=== PATIENT | male | born 1950 | race Caucasian/White ===

== ENCOUNTER 2023-03-10 22:14 | Inpatient (IN) | payer OTHER ==
[~2023-03-10] VITALS: Ht 167.6 cm; Wt 99.8 kg
[2023-03-10] MEDS ORDERED: TACR1 PO (22:48)
[2023-03-10] MEDS ORDERED: TAMS.4ER PO (22:49)
[2023-03-10] MEDS ORDERED: Calcium Carbon500 MG PO (22:49)
[2023-03-10] MEDS ORDERED: Iron Chews15 MG PO (22:50)
[2023-03-10] MEDS ORDERED: MAGCHL64ER PO (22:50)
[2023-03-10] MEDS ORDERED: LEVSOD88 PO (22:50)
[2023-03-10] MEDS ORDERED: VITAMIN D310 MC5 PO (22:51)
[2023-03-10] MEDS ORDERED: VITAMIN B125000 MC1 PO (22:51)
[2023-03-10] MEDS ORDERED: METO25ER PO (22:52)
[2023-03-10 22:54] LABS: BASOPHILS ABSOLUTE AUTO 0.03 K/mm3 (0.00-0.23); BASOPHILS PERCENT AUTO 0 % (0-2); EOSINOPHILS ABSOLUTE AUTO 0.05 K/mm3 (0.00-0.68); EOSINOPHILS PERCENT AUTO 1 % (0-6); Hematocrit 35.7 % (37.0-53.0); Hemoglobin 12.2 g/dL (13.5-17.5); IMMATURE GRAN ABSOLUTE AUTO 0.04 K/mm3 (0.00-0.10); IMMATURE GRAN PERCENT AUTO 0 % (0-1); LYMPHOCYTES ABSOLUTE AUTO 2.58 K/mm3 (0.84-5.20); LYMPHOCYTES PERCENT AUTO 27 % (21-46); MONOCYTES PERCENT AUTO 5 % (4-13); Mean Corpuscular HGB 31.3 pg (26.0-34.0); Mean Corpuscular HGB Conc 34.2 g/dL (31.5-36.5); Mean Corpuscular Volume 92 fL (80-100); Mean Platelet Volume 9.8 fL (9.1-12.4); NEUTROPHILS ABSOLUTE AUTO 6.29 K/mm3 (1.96-9.15); NEUTROPHILS PERCENT AUTO 66 % (41-73); Platelet Count 147 K/mm3 (150-400); RDW Coefficient Variation 13.3 % (11.7-14.2); RDW Standard Deviation 44.6 fL (35.1-46.3); White Blood Cell Count 9.49 K/mm3 (4.00-11.30)
[2023-03-10 23:15] LABS: Albumin, Blood 3.5 g/dL (3.4-5.0); Albumin/Globulin Ratio 0.9 (0.8-1.8); Bilirubin, Total 0.7 mg/dL (0.1-1.0); Calcium, Blood 9.1 mg/dL (8.5-10.1); Creatinine, Blood 1.25 mg/dL (0.60-1.20); Globulin, Blood 3.7 g/dL (2.2-4.0); Potassium, Blood 4.3 mmol/L (3.5-5.5); Total Protein, Blood 7.2 g/dL (6.4-8.2)
[2023-03-11 00:21] LABS: Influenza A, PCR NEGATIVE (NEGATIVE); Influenza B, PCR NEGATIVE (NEGATIVE); Resp Syncytial Virus, PCR NEGATIVE (NEGATIVE); SARS-Cov-2 (COVID-19) PCR, MMC NEGATIVE (NEGATIVE)
[2023-03-11 01:52] VITALS: BP 110/61
[2023-03-11 05:48] LABS: BASOPHILS ABSOLUTE AUTO 0.03 K/mm3 (0.00-0.23); BASOPHILS PERCENT AUTO 0 % (0-2); EOSINOPHILS ABSOLUTE AUTO 0.07 K/mm3 (0.00-0.68); EOSINOPHILS PERCENT AUTO 1 % (0-6); Hematocrit 33.8 % (37.0-53.0); Hemoglobin 11.1 g/dL (13.5-17.5); IMMATURE GRAN ABSOLUTE AUTO 0.04 K/mm3 (0.00-0.10); IMMATURE GRAN PERCENT AUTO 1 % (0-1); LYMPHOCYTES ABSOLUTE AUTO 1.77 K/mm3 (0.84-5.20); LYMPHOCYTES PERCENT AUTO 22 % (21-46); MONOCYTES ABSOLUTE AUTO 0.48 K/mm3 (0.16-1.47); MONOCYTES PERCENT AUTO 6 % (4-13); Mean Corpuscular HGB 30.7 pg (26.0-34.0); Mean Corpuscular HGB Conc 32.8 g/dL (31.5-36.5); Mean Corpuscular Volume 93 fL (80-100); Mean Platelet Volume 9.9 fL (9.1-12.4); NEUTROPHILS ABSOLUTE AUTO 5.61 K/mm3 (1.96-9.15); NEUTROPHILS PERCENT AUTO 70 % (41-73); Platelet Count 125 K/mm3 (150-400); RDW Coefficient Variation 13.1 % (11.7-14.2); RDW Standard Deviation 44.9 fL (35.1-46.3); Red Blood Cell Count 3.62 M/mm3 (4.30-5.90)
[2023-03-11 05:58] LABS: Albumin/Globulin Ratio 0.9 (0.8-1.8); Bilirubin, Total 0.6 mg/dL (0.1-1.0); Bun/Creatinine Ratio 17.8 (12.0-20.0); Calcium, Blood 8.8 mg/dL (8.5-10.1); Creatinine, Blood 1.29 mg/dL (0.60-1.20); Globulin, Blood 3.4 g/dL (2.2-4.0); Potassium, Blood 4.4 mmol/L (3.5-5.5); Total Protein, Blood 6.4 g/dL (6.4-8.2)
[2023-03-11 07:36] VITALS: BP 120/73
--- NOTE | 2023-03-11 16:28 | NUR ---
PATIENT IS ALERT AND ORIENTED AND COOPERATIVE WITH CARE. ON 2L O2 VIA NC. RN TRIED TO TITRATE HIS OXYGEN FROM 2L TO RA BUT HIS O2 LEVEL ON RA WAS 87%. BRONCHODILATOR PROTOCOL ORDERED BY DR. ORELLANA TO GET RT INVOLVED IN THE PATIENT'S CARE HE NOW HAS SCHEDULED BREATHING TREATMENTS. PATIENT'S WAS AT THE BEDSIDE TODAY AND SHE WAS VERY KNOWLEDGEABLE ABOUT HIS HOME MEDICATIONS. PATIENT STATES HE IS FEELING BETTER THIS AFTERNOON COMPARED TO THIS MORNING. NEW IV PLACED IN HIS RAC. WILL CONTINUE TO MONITOR
[2023-03-11 16:46] VITALS: BP 93/72
[2023-03-11 19:30] VITALS: BP 138/66
[2023-03-12 03:37] VITALS: BP 114/63
--- NOTE | 2023-03-12 05:09 | NUR ---
PATIENT SELPT FOR SOME OF THE NIGHT, C/O HEADACHE AND TREATED PER JAN. TACHYCARDIA, BUT OTHERWISE VSS. HEART SOUNDS IRREGULAR, LUNGS ARE DIM, COARSE, WITH NON-PRODUCTIVE COUGH. ABD DISTENDED, PATIENT STATES IS NORMAL, REPORTS BM THE DAY PRIOR TO ARRIVAL ON THE . 2L NC CONTINUED THROUGH THE NIGHT. CALLS TO MAKE NEEDS KNOWN. STAND BY ASSIST WITH BRP. WILL CONT TO MONITOR.
[2023-03-12 07:31] VITALS: BP 100/61
[2023-03-12] MEDS ORDERED: FERROUS SULFAT325 M3 PO (11:43)
[2023-03-12] MEDS ORDERED: Promacta25 MG PO (11:46)
[2023-03-12] MEDS ORDERED: ACETADOTE200 MG/1 M PO (11:47)
[2023-03-12] MEDS ORDERED: ROFL500T PO (11:48)
[2023-03-12 16:37] VITALS: BP 143/78
--- NOTE | 2023-03-12 17:15 | NUR ---
SHIFT SUMMARY NO ACUTE CHANGES DURING SHIFT. PT ALERT AND ORIENTED, CALLS APPROPRIATELY. PT C/O HEADACHE, TYLENOL NOT EFFECTIVE. FIORCET STARTED AND ADMINISTERED X 2, PT STATES EFFECTIVE. PT REMAINS ON 2L, VERY SOB WITH EXERTION. WILL CONTINUE TO MONITOR. CALL LIGHT WITHIN REACH
[2023-03-12 21:38] VITALS: BP 125/72
[2023-03-13 05:04] VITALS: BP 108/65
[2023-03-13 06:01] LABS: BASOPHILS ABSOLUTE AUTO 0.02 K/mm3 (0.00-0.23); BASOPHILS PERCENT AUTO 0 % (0-2); EOSINOPHILS ABSOLUTE AUTO 0.09 K/mm3 (0.00-0.68); EOSINOPHILS PERCENT AUTO 2 % (0-6); Hematocrit 30.8 % (37.0-53.0); Hemoglobin 10.2 g/dL (13.5-17.5); IMMATURE GRAN ABSOLUTE AUTO 0.05 K/mm3 (0.00-0.10); IMMATURE GRAN PERCENT AUTO 1 % (0-1); LYMPHOCYTES ABSOLUTE AUTO 1.21 K/mm3 (0.84-5.20); LYMPHOCYTES PERCENT AUTO 27 % (21-46); MONOCYTES ABSOLUTE AUTO 0.28 K/mm3 (0.16-1.47); MONOCYTES PERCENT AUTO 6 % (4-13); Mean Corpuscular HGB 31.1 pg (26.0-34.0); Mean Corpuscular HGB Conc 33.1 g/dL (31.5-36.5); Mean Corpuscular Volume 94 fL (80-100); Mean Platelet Volume 10.1 fL (9.1-12.4); NEUTROPHILS ABSOLUTE AUTO 2.86 K/mm3 (1.96-9.15); NEUTROPHILS PERCENT AUTO 64 % (41-73); Platelet Count 109 K/mm3 (150-400); RDW Coefficient Variation 12.9 % (11.7-14.2); RDW Standard Deviation 44.6 fL (35.1-46.3); Red Blood Cell Count 3.28 M/mm3 (4.30-5.90); White Blood Cell Count 4.51 K/mm3 (4.00-11.30)
[2023-03-13 07:07] LABS: Bun/Creatinine Ratio 17.3 (12.0-20.0); Calcium, Blood 8.5 mg/dL (8.5-10.1); Creatinine, Blood 1.33 mg/dL (0.60-1.20); Potassium, Blood 3.8 mmol/L (3.5-5.5)
[2023-03-13 07:42] VITALS: BP 111/65
--- NOTE | 2023-03-13 17:46 | NUR ---
SHIFT SUMMARY: PT A&O X4. PT PLEASANT AND COOPERATIVE WITH CARE. PT RECEIVING IV AZITHROMYCIN AND ROCEPHIN. TOLERATING WELL. ABX AZITHRO SWITCHED TO PO STARTING TOMORROW. PLAN FOR PT TO D/C TOMORROW. PT USES INTERMITTENT 02 MAINTAINING SATS >95%. PT NEEDED 1 UNIT INSULIN COVERAGE FOR LUNCH AND DINNER. PT INDEPENDENT IN ROOM. PT HAD 9/10 PAIN IN HEAD THIS SHIFT. PT STATES HE HAS CHRONIC HEADACHES. MEDICATED PER EMAR. CURRENTLY NOT C/O PAIN. IV IN RAC LEAKING THIS EVENING. PULLED IV AND PLAN TO START NEW ONE. PT INDEPENDENT IN ROOM. CALL LIGHT IN REACH. WILL CONTINUE TO MONITOR.
[2023-03-13 20:00] VITALS: BP 123/73
--- NOTE | 2023-03-14 04:36 | NUR ---
PT RESTING IN BED, PT UP TO BR SEVERAL TIMES DURRING THE NIGHT. PT HAS ON HIS O2 AT THIS TIME, PT USES INTERMITANTLY. CALL LIGHT IN REACH.
[2023-03-14 05:36] VITALS: BP 132/85
[2023-03-14 07:33] VITALS: BP 127/82
[2023-03-14] MEDS ORDERED: CEFU500T30 PO (11:18)
[2023-03-14] MEDS ORDERED: ZEBUTAL 50-3251 EAC1 (11:18)
[2023-03-14] MEDS ORDERED: AZIT500 PO (11:18)
--- NOTE | 2023-03-14 16:17 | NUR ---
No acute changes to patient status, finished IV ABX, plan to discharge home with kiarra. Home O2 eval done, no oxygen needed. Pt discharged 1200
== END 2023-03-14 13:05 | disposition home or self-care (01) | DRG 189 ==
LOC: ER 22:14 → MEDS 22:15 → ER 22:15 → MEDS 22:15 → ENPENDDIS 03-14 09:14 → MEDS 03-14 13:05
PROVIDERS: Emergency Medicine; Internal Medicine; ADMIT Student in an Organized Health Care Education/Training Program
DX: J96.01 Acute respiratory failure with hypoxia (principal); J44.1 Chronic obstructive pulmonary disease with (acute) exacerbation; J44.0 Chronic obstructive pulmonary disease with (acute) lower respiratory infection; R65.10 Systemic inflammatory response syndrome (SIRS) of non-infectious origin without acute organ dysfunction; Z94.4 Liver transplant status; E11.65 Type 2 diabetes mellitus with hyperglycemia; J20.9 Acute bronchitis, unspecified; E11.42 Type 2 diabetes mellitus with diabetic polyneuropathy; E03.9 Hypothyroidism, unspecified; Z68.35 Body mass index [BMI] 35.0-35.9, adult; Z20.822 Contact with and (suspected) exposure to COVID-19; Z99.81 Dependence on supplemental oxygen; Z88.0 Allergy status to penicillin; Z88.5 Allergy status to narcotic agent; Z79.899 Other long term (current) drug therapy
CPT/HCPCS: 0241U; 36415; 71045; 80048; 80053; 82947; 83036; 83605; 83880; 84145; 85025; 87040; 87070; 87205; 87449; 93005; 93010; 94640; 94664; 94760; 96365; 96367; 96372; 96375; 99285-25; A9270; G0378; J0456; J0696; J1650; J2405; J7030; J7050; J7507

== ENCOUNTER 2024-10-06 13:57 | Inpatient (IN) | payer OTHER ==
[~2024-10-06] VITALS: Ht 167.6 cm; Wt 76.5 kg
[~2024-10-06 13:57] MED LIST: ACETADOTE200 MG/1 M PO; AZIT500 PO; CEFU500T30 PO; Calcium Carbon500 MG PO; FERROUS SULFAT325 M3 PO; Iron Chews15 MG PO; LEVSOD88 PO; MAGCHL64ER PO; METO25ER PO; Promacta25 MG PO; ROFL500T PO; TACR1 PO; TAMS.4ER PO; VITAMIN B125000 MC1 PO; VITAMIN D310 MC5 PO; ZEBUTAL 50-3251 EAC1
[2024-10-06] MEDS ORDERED: Promacta25 MG (14:45)
[2024-10-06] MEDS ORDERED: FERSU300 PO (14:45)
[2024-10-06] MEDS ORDERED: BREYNA 160-4.10.3 GM INH (14:46)
[2024-10-06] MEDS ORDERED: ALBU90OI INH (14:46)
[2024-10-06] MEDS ORDERED: SPIRIVA RESPIMAT4 G3 INH (14:46)
[2024-10-06] MEDS ORDERED: MS CONTIN15 MG PO (14:51)
[2024-10-06] MEDS ORDERED: MAGNESIUM GLU27.5 MG PO (14:52)
[2024-10-06] MEDS ORDERED: METO25 PO (14:52)
[2024-10-06 15:16] LABS: BASOPHILS ABSOLUTE AUTO 0.04 K/mm3 (0.00-0.23); BASOPHILS PERCENT AUTO 1 % (0-2); EOSINOPHILS ABSOLUTE AUTO 0.13 K/mm3 (0.00-0.68); EOSINOPHILS PERCENT AUTO 2 % (0-6); Hemoglobin 10.3 g/dL (13.5-17.5); IMMATURE GRAN ABSOLUTE AUTO 0.02 K/mm3 (0.00-0.10); IMMATURE GRAN PERCENT AUTO 0 % (0-1); LYMPHOCYTES ABSOLUTE AUTO 1.47 K/mm3 (0.84-5.20); LYMPHOCYTES PERCENT AUTO 24 % (21-46); MONOCYTES ABSOLUTE AUTO 0.45 K/mm3 (0.16-1.47); MONOCYTES PERCENT AUTO 7 % (4-13); Mean Corpuscular HGB 28.9 pg (26.0-34.0); Mean Corpuscular HGB Conc 33.2 g/dL (31.5-36.5); Mean Corpuscular Volume 87 fL (80-100); Mean Platelet Volume 9.3 fL (9.1-12.4); NEUTROPHILS ABSOLUTE AUTO 4.05 K/mm3 (1.96-9.15); NEUTROPHILS PERCENT AUTO 66 % (41-73); Platelet Count 205 K/mm3 (150-400); RDW Standard Deviation 40.9 fL (35.1-46.3); Red Blood Cell Count 3.57 M/mm3 (4.30-5.90); White Blood Cell Count 6.16 K/mm3 (4.00-11.30)
[2024-10-06 15:43] LABS: Albumin, Blood 2.7 g/dL (3.4-5.0); Albumin/Globulin Ratio 0.8 (0.8-1.8); Bilirubin, Total 0.5 mg/dL (0.1-1.0); Bun/Creatinine Ratio 18.9 (12.0-20.0); Calcium, Blood 9.3 mg/dL (8.5-10.1); Creatinine, Blood 1.27 mg/dL (0.60-1.20); Globulin, Blood 3.6 g/dL (2.2-4.0); Potassium, Blood 4.1 mmol/L (3.5-5.5); Total Protein, Blood 6.3 g/dL (6.4-8.2)
[2024-10-06 16:04] LABS: Influenza A, PCR NEGATIVE (NEGATIVE); Influenza B, PCR NEGATIVE (NEGATIVE); Resp Syncytial Virus, PCR NEGATIVE (NEGATIVE); SARS-Cov-2 (COVID-19) PCR, MMC NEGATIVE (NEGATIVE)
[2024-10-06] MEDS ORDERED: Ipratropium/Albuterol SulF 2.5-0.5MG/3 ML Amp INH SCH (18:45)
[2024-10-06] MEDS ORDERED: NS 1,000 ML IV SCH (18:50)
[2024-10-06] MEDS ORDERED: Ondansetron HCl 2 MG / ML 2ML Vial IV PRN (18:50)
[2024-10-06] MEDS ORDERED: Albuterol 2.5 MG/3 ML VIAL INH PRN (18:50)
[2024-10-06] MEDS ORDERED: NS 1,000 ML IV ONE (18:55)
[2024-10-06] MEDS ORDERED: Morphine Sulfate 15 MG TABCR PO PRN (18:55)
[2024-10-06] MEDS ORDERED: Tacrolimus 1 MG Cap PO SCH (20:00)
[2024-10-06] MEDS ORDERED: Azithromycin 500 MG in NS 250 ML IV SCH (21:00)
[2024-10-06] MEDS ORDERED: FLU VACC TS2024-25(6MOS UP)/PF 45 MCG/0.5 ML SYRINGE IM ONE (21:00)
[2024-10-06] MEDS ORDERED: Metoprolol Succinate 25 MG TABCR PO SCH (21:00)
[2024-10-06] MEDS ORDERED: ELTROMBOPAG 25 MG PO SCH (21:00)
[2024-10-06] MEDS ORDERED: Insulin Human Lispro 100 Units/ML 3ML Syringe SC SCH (21:00)
[2024-10-06 21:22] VITALS: BP 119/72
--- NOTE | 2024-10-06 23:55 | NUR ---
PATIENT ARRIVED VIA STRETCHER FROM THE ED AT 2044. PT IS ALERT AND ORIENTED X4. HE IS PLEASANT AND COOPERATIVE. PT WAS ABLE TO TRANSFER FROM [place] TO BED WITHOUT DIFFICULTY, JUST SOB WITH ACTIVITY. PT SETTLED IN TO ROOM AND ORIENTEDD TO URINAL, CALL LIGHT. PT IV FLUIDS STARTED. PT GIVEN A RESP TREATMENT PER HIS REQUEST. HAD SNACK. CPAP ON WITH O2 2 LITER BLEED IN. PULSE OX ON. SATS 96%.
[2024-10-07] MEDS ORDERED: MethylPREDNISolone Sod Succ 125 MG Vial IV SCH
[2024-10-07 03:37] VITALS: BP 108/64
[2024-10-07] MEDS ORDERED: Levothyroxine Sodium 0.05 MG Tab PO SCH (06:00)
--- NOTE | 2024-10-07 06:04 | NUR ---
RNshift summary: Patient has rested better the second half of this shift. His O2 sats on the CPAP with 2 liter bleed in has maintained at 95%. Pt states he feels slightly better, less wheezy. IV fluids continue. Using the urinal independantly. Pt reminded to call for assist when he gets up. Call light in reach.
[2024-10-07 07:31] VITALS: BP 123/93
[2024-10-07] MEDS ORDERED: Ferrous Sulfate 325 MG Tab PO SCH (09:00)
[2024-10-07] MEDS ORDERED: ROFLUMILAST 500 MCG PO SCH (09:00)
[2024-10-07] MEDS ORDERED: Enoxaparin 40 MG/0.4 ML SYR SC SCH (09:00)
[2024-10-07] MEDS ORDERED: Tamsulosin HCl 0.4 MG Cap PO SCH (09:00)
[2024-10-07] MEDS ORDERED: Promacta25 MG PO (11:33)
[2024-10-07 12:57] LABS: Adenovirus Not Detected (NOT DETECT); Bordetella pertussis Not Detected (NOT DETECT); Chlamydophila pneumoniae Not Detected (NOT DETECT); Coronavirus 229E Not Detected (NOT DETECT); Coronavirus HKU1 Not Detected (NOT DETECT); Coronavirus NL63 Not Detected (NOT DETECT); Coronavirus OC43 Not Detected (NOT DETECT); Human Metapneumovirus Not Detected (NOT DETECT); Human Rhinovirus/Enterovirus Not Detected (NOT DETECT); Influenza A/2009-H1 Not Detected (NOT DETECT); Influenza A/H1 Not Detected (NOT DETECT); Influenza A/H3 Not Detected (NOT DETECT); Influenza B Not Detected (NOT DETECT); Mycoplasma pneumoniae Not Detected (NOT DETECT); Parainfluenza Virus 1 Not Detected (NOT DETECT); Parainfluenza Virus 2 Not Detected (NOT DETECT); Parainfluenza Virus 3 Not Detected (NOT DETECT); Parainfluenza Virus 4 Not Detected (NOT DETECT); Respiratory Syncytial Virus Not Detected (NOT DETECT); SARS-Cov-2 (COVID-19), BioFire Not Detected (NOT DETECT)
[2024-10-07 15:10] VITALS: BP 120/76
[2024-10-07] MEDS ORDERED: ELTROMBOPAG 25 MG PO SCH (17:00)
--- NOTE | 2024-10-07 18:08 | NUR ---
SHIFT SUMMARY PT A&OX4 AND ANSWERS QUESTIONS APPROPRIATELY. PT RECEIVED SCHEDULED AND PRN MEDICATIONS. HOME MEDICATIONS VERIFIED AT PHARMACY AND ARE IN THE PT'S DRAWER. PT HAD LARGE LOOSE BM EARLIER. PT VSS, NO COMPLAINTS OF CP/PRESSURE OR SOB. NO ACUTE EVENTS AT THIS TIME. PT REPOSITIONED INDEPENDENTLY. PT KEPT IN A POSITION OF SAFETY WITH FALL PRECAUTIONS IN PLACE AND CALL LIGHT IN REACH.
[2024-10-07 19:47] VITALS: BP 111/65
[2024-10-08 01:55] VITALS: BP 103/58
[2024-10-08 05:07] LABS: BASOPHILS PERCENT AUTO 0 % (0-2); EOSINOPHILS ABSOLUTE AUTO 0.01 K/mm3 (0.00-0.68); EOSINOPHILS PERCENT AUTO 0 % (0-6); Hematocrit 30.1 % (37.0-53.0); IMMATURE GRAN ABSOLUTE AUTO 0.06 K/mm3 (0.00-0.10); IMMATURE GRAN PERCENT AUTO 1 % (0-1); LYMPHOCYTES ABSOLUTE AUTO 0.55 K/mm3 (0.84-5.20); LYMPHOCYTES PERCENT AUTO 9 % (21-46); MONOCYTES ABSOLUTE AUTO 0.11 K/mm3 (0.16-1.47); MONOCYTES PERCENT AUTO 2 % (4-13); Mean Corpuscular HGB 28.1 pg (26.0-34.0); Mean Corpuscular HGB Conc 33.2 g/dL (31.5-36.5); Mean Corpuscular Volume 85 fL (80-100); Mean Platelet Volume 9.7 fL (9.1-12.4); NEUTROPHILS ABSOLUTE AUTO 5.18 K/mm3 (1.96-9.15); NEUTROPHILS PERCENT AUTO 88 % (41-73); Platelet Count 232 K/mm3 (150-400); RDW Standard Deviation 40.1 fL (35.1-46.3); Red Blood Cell Count 3.56 M/mm3 (4.30-5.90); White Blood Cell Count 5.91 K/mm3 (4.00-11.30)
[2024-10-08 05:32] LABS: Bun/Creatinine Ratio 27.9 (12.0-20.0); Calcium, Blood 8.6 mg/dL (8.5-10.1); Creatinine, Blood 1.29 mg/dL (0.60-1.20); Potassium, Blood 4.1 mmol/L (3.5-5.5)
--- NOTE | 2024-10-08 07:20 | NUR ---
Shift Summary No acute events, no pain or nausea. Pt independent in the room/SBA for line management if needed. Blood glucose was elevated last night around 326, gave 2 units fast acting insulin per low sliding scale. Pt is AOx4.
[2024-10-08 08:05] VITALS: BP 109/79
[2024-10-08] MEDS ORDERED: Insulin Glargine-Yfgn 100 Unit/mL 3 ML SYR SC SCH (14:00)
[2024-10-08 14:55] VITALS: BP 108/94
--- NOTE | 2024-10-08 17:58 | NUR ---
SHIFT SUMMARY PT CONT LEVEL OF CARE WITH NO ACUTE CHANGES NOTED. PT IS A&O X4 AND INDEPENDENT IN ROOM. PT NOTED TO BRING IN HOME MEDICATION WHICH WAS VERIFIED BY PHARMACY. PT IS STILL NEEDING SPUTUM CULTURE COLLECTED BUT STATED HE IS NOT COUGHING ANYTHING UP. PT WAS STARTED ON LONG ACTING INSULIN THIS SHIFT D/T ELEVATED BLOOD GLUCOSE.
[2024-10-08 19:39] VITALS: BP 108/58
[2024-10-08] MEDS ORDERED: MethylPREDNISolone Sod Succ 40 MG VIAL IV SCH ×2 (21:00)
[2024-10-09 01:30] VITALS: BP 102/84
[2024-10-09] MEDS ORDERED: Metoprolol Tartrate 1 MG/ML 5 ML VIAL IV SCH (01:40)
--- NOTE | 2024-10-09 02:11 | NUR ---
Elevated HR 100-140 I rcvd a call from tele saying pt was taching up to 140 and sustaining. Upon assessment his HR was bouncing around from 100-140. Asymptomatic, BP was 102/84. Called hospitalist who ordered 5mg IV lopressor now and then another 5 mg if the issue is unresolved in 1 hour.
[2024-10-09 03:47] VITALS: BP 116/84
[2024-10-09 05:13] LABS: BASOPHILS ABSOLUTE AUTO 0.01 K/mm3 (0.00-0.23); BASOPHILS PERCENT AUTO 0 % (0-2); EOSINOPHILS PERCENT AUTO 0 % (0-6); Hematocrit 31.9 % (37.0-53.0); Hemoglobin 10.5 g/dL (13.5-17.5); IMMATURE GRAN ABSOLUTE AUTO 0.12 K/mm3 (0.00-0.10); IMMATURE GRAN PERCENT AUTO 1 % (0-1); LYMPHOCYTES ABSOLUTE AUTO 0.88 K/mm3 (0.84-5.20); LYMPHOCYTES PERCENT AUTO 8 % (21-46); MONOCYTES ABSOLUTE AUTO 0.18 K/mm3 (0.16-1.47); MONOCYTES PERCENT AUTO 2 % (4-13); Mean Corpuscular HGB 28.5 pg (26.0-34.0); Mean Corpuscular HGB Conc 32.9 g/dL (31.5-36.5); Mean Corpuscular Volume 86 fL (80-100); Mean Platelet Volume 9.6 fL (9.1-12.4); NEUTROPHILS ABSOLUTE AUTO 9.46 K/mm3 (1.96-9.15); NEUTROPHILS PERCENT AUTO 89 % (41-73); Platelet Count 289 K/mm3 (150-400); RDW Coefficient Variation 13.1 % (11.7-14.2); Red Blood Cell Count 3.69 M/mm3 (4.30-5.90); White Blood Cell Count 10.65 K/mm3 (4.00-11.30)
[2024-10-09 06:01] LABS: Bun/Creatinine Ratio 26.4 (12.0-20.0); Calcium, Blood 8.6 mg/dL (8.5-10.1); Creatinine, Blood 1.44 mg/dL (0.60-1.20); Potassium, Blood 5.2 mmol/L (3.5-5.5)
--- NOTE | 2024-10-09 06:22 | NUR ---
Shift Summary Pt had an episode of tachycardia up into the 140's, see previous nursing note. He was treated with IV metropolol which managed symptoms well, his HR is now back to his baseline around of 100. No c/o of pain or nausea. Home meds are in his med drawer. Pt on 2L NC t/o the night, no desaturation events. Indepednent in the room, AOX4.
[2024-10-09 07:26] VITALS: BP 100/85
--- NOTE | 2024-10-09 11:22 | NUR ---
RN ROUNDING WITH DR. SCHILLING AT PT BEDSIDE. DR. SCHILLING WITH ORDERS FOR PRN EKG FOR SINUS TACH AND ALSO GUAFENESIN 1200MG BID.
--- NOTE | 2024-10-09 12:39 | NUR ---
PHONE CALL TO DR. TONIE PHILLIPS TO CHANGE THE ABG TO A VBG. ORDERS UPDATED IN EHR BY RN.
[2024-10-09 13:17] LABS: Free Thyroxine 1.57 ng/dL (0.70-1.60); Thyroid Stimulating Hormone 0.302 uIU/mL (0.360-4.800)
[2024-10-09 13:22] LABS: Base Excess Venous 1.7 mmol/L; Bicarbonate Venous 24.8 mmol/L (24.0-30.0); pH Blood Venous 7.36 (7.34-7.37)
[2024-10-09 15:49] VITALS: BP 112/73
[2024-10-09 17:23] LABS: Acinetobacter baumannii DNA Not Detected copy/mL (NOT DETECT); Adenovirus DNA Not Detected (NOT DETECT); Chlamydia pneumonia Not Detected (NOT DETECT); Enterobacter cloacae DNA Not Detected copy/mL (NOT DETECT); Escherichia coli DNA Not Detected copy/mL (NOT DETECT); Haemophilus influenzae DNA Not Detected copy/mL (NOT DETECT); Human Coronavirus RNA Not Detected (NOT DETECT); Human Metapneumovirus RNA Not Detected (NOT DETECT); Influenza virus A RNA Not Detected (NOT DETECT); Influenza virus B RNA Not Detected (NOT DETECT); Klebsiella aerogenes DNA Not Detected copy/mL (NOT DETECT); Klebsiella oxytoca DNA Not Detected copy/mL (NOT DETECT); Klebsiella pneumoniae DNA Not Detected copy/mL (NOT DETECT); Legionella pneumophila Not Detected (NOT DETECT); Moraxella catarrhalis DNA Not Detected copy/mL (NOT DETECT); Mycoplasma pneumoniae Not Detected (NOT DETECT); Parainfluenza virus RNA Not Detected (NOT DETECT); Proteus sp DNA Not Detected copy/mL (NOT DETECT); Pseudomonas aeruginosa DNA Not Detected copy/mL (NOT DETECT); Respiratory syncytial Vir RNA Not Detected (NOT DETECT); Rhinovirus+Enterovirus RNA Not Detected (NOT DETECT); Serratia marcescens DNA Not Detected copy/mL (NOT DETECT); Staphylococcus aureus DNA Not Detected copy/mL (NOT DETECT); Streptococcus agalactiae DNA Not Detected copy/mL (NOT DETECT); Streptococcus pneumoniae DNA Not Detected copy/mL (NOT DETECT); Streptococcus pyogenes DNA Not Detected copy/mL (NOT DETECT)
--- NOTE | 2024-10-09 19:28 | NUR ---
FANNY TITRATED DOWN TO ROOM AIR. HE IS MAINTAINING O2 SATS ABOVE 94%. HE INDEPENDENTLY AMBULATES TO THE BATHROOM, HE IS CONTINENT. TAKES PILLS WHOLE WITH WATER. DM 2. HOME MEDS IN DRAWER FOR LIVER TRANSPLANT. PT'S HEART RATE IS MAINTAINING IN THE 110'S-120'S. DENIES CHEST PAIN OR CHEST TIGHTNESS. EKG AND VBG PERFORMED. PT IS A&0 X4, ABLE TO USE CALL LIGHT APPROPRIATELY TO MAKE NEEDS KNOWN.
[2024-10-09 20:42] VITALS: BP 110/79
[2024-10-09] MEDS ORDERED: GuaiFENesin 600 MG TabCR PO SCH (21:00)
[2024-10-09] MEDS ORDERED: MethylPREDNISolone Sod Succ 40 MG VIAL IV SCH (21:00)
[2024-10-10 04:47] LABS: BASOPHILS ABSOLUTE AUTO 0.01 K/mm3 (0.00-0.23); BASOPHILS PERCENT AUTO 0 % (0-2); EOSINOPHILS ABSOLUTE AUTO 0.01 K/mm3 (0.00-0.68); EOSINOPHILS PERCENT AUTO 0 % (0-6); Hematocrit 30.1 % (37.0-53.0); Hemoglobin 9.9 g/dL (13.5-17.5); IMMATURE GRAN ABSOLUTE AUTO 0.13 K/mm3 (0.00-0.10); IMMATURE GRAN PERCENT AUTO 2 % (0-1); LYMPHOCYTES ABSOLUTE AUTO 1.04 K/mm3 (0.84-5.20); LYMPHOCYTES PERCENT AUTO 14 % (21-46); MONOCYTES ABSOLUTE AUTO 0.32 K/mm3 (0.16-1.47); MONOCYTES PERCENT AUTO 4 % (4-13); Mean Corpuscular HGB 28.5 pg (26.0-34.0); Mean Corpuscular HGB Conc 32.9 g/dL (31.5-36.5); Mean Corpuscular Volume 87 fL (80-100); Mean Platelet Volume 9.2 fL (9.1-12.4); NEUTROPHILS ABSOLUTE AUTO 5.97 K/mm3 (1.96-9.15); NEUTROPHILS PERCENT AUTO 80 % (41-73); Platelet Count 223 K/mm3 (150-400); RDW Coefficient Variation 13.2 % (11.7-14.2); RDW Standard Deviation 41.5 fL (35.1-46.3); Red Blood Cell Count 3.47 M/mm3 (4.30-5.90); White Blood Cell Count 7.48 K/mm3 (4.00-11.30)
[2024-10-10 05:14] LABS: Bun/Creatinine Ratio 28.8 (12.0-20.0); Calcium, Blood 8.6 mg/dL (8.5-10.1); Creatinine, Blood 1.46 mg/dL (0.60-1.20); Potassium, Blood 4.8 mmol/L (3.5-5.5)
[2024-10-10 05:18] VITALS: BP 129/87
[2024-10-10 08:04] VITALS: BP 115/78
[2024-10-10] MEDS ORDERED: Furosemide 10 MG / ML 2ML Vial IV ONE (11:30)
[2024-10-10 16:03] VITALS: BP 114/70
--- NOTE | 2024-10-10 16:24 | NUR ---
no acute changes, tele discontinued due to unable to read correctly with all of patients tremors, alert and oreinted x4, ls tight, productive cough, oxygen on at night,transplant medications in patient drawer, vss, call light with in reach, will relay to pm rn
--- NOTE | 2024-10-10 19:38 | NUR ---
RECEIVED BEDSIDE REPORT FROM DAYSHIFT RN. NO NEEDS AT THIS TIME. CALL LT IN REACH.
[2024-10-10 19:40] VITALS: BP 124/86
--- NOTE | 2024-10-10 22:44 | NUR ---
PT AWAKE AND WATCHING TV. DENIES PAIN MEDICATION. NO NEEDS AT THIS TIME. CALL LT IN REACH.
--- NOTE | 2024-10-10 23:58 | NUR ---
PT RESTING QUIETLY LYING ON LEFT SIDE. 96% SATS, AND HEART RATE 111 PER CONT BIOX. CALL LT IN REACH.
--- NOTE | 2024-10-11 01:06 | NUR ---
PT UP TO THE BATHROOM AND BACK TO BED, STILL VERY SOB WITH ACTIVITY. DENIES NEEDS. CALL LT IN REACH.
--- NOTE | 2024-10-11 02:38 | NUR ---
PT RESTING. CALL LT IN REACH.
--- NOTE | 2024-10-11 03:40 | NUR ---
PT REQUESTED A BREATHING TREATMENT AFTER WALKING TO THE BATHROOM AND BACK TO HIS BED. STATES HE GOT PRETTY WINDED. RESPIRATORY CARE CAME AND PROVIDED A BREATHING TREATMENT. PT STATES IT HELPED. CALL LT IN REACH.
--- NOTE | 2024-10-11 03:43 | NUR ---
SHIFT SUMMARY: PT CONTINUES TO BE SOB AND WINDED WITH ACTIVITY REQUIRING BREATHING TREATMENTS TO GET HIM MORE COMFORTABLE WITH RESPIRATIONS. CURRENTLY WEARING 2.5L VIA NC WHILE IN BED. NO REPORTS OF PAIN DURING THIS SHIFT. ALERT AND ORIENTED AND ABLE TO MAKE HIS NEEDS KNOWN. USES CALL LT APPROPRIATELY. WILL CONTINUE TO PROVIDE CARE UNTIL SHIFT REPORT TO ONCOMING NURSE. CALL LT IN REACH.
[2024-10-11 05:23] LABS: BASOPHILS ABSOLUTE AUTO 0.02 K/mm3 (0.00-0.23); BASOPHILS PERCENT AUTO 0 % (0-2); EOSINOPHILS ABSOLUTE AUTO 0.12 K/mm3 (0.00-0.68); EOSINOPHILS PERCENT AUTO 2 % (0-6); Hematocrit 31.5 % (37.0-53.0); Hemoglobin 10.1 g/dL (13.5-17.5); IMMATURE GRAN ABSOLUTE AUTO 0.14 K/mm3 (0.00-0.10); IMMATURE GRAN PERCENT AUTO 2 % (0-1); LYMPHOCYTES ABSOLUTE AUTO 1.93 K/mm3 (0.84-5.20); LYMPHOCYTES PERCENT AUTO 25 % (21-46); MONOCYTES ABSOLUTE AUTO 0.36 K/mm3 (0.16-1.47); MONOCYTES PERCENT AUTO 5 % (4-13); Mean Corpuscular HGB Conc 32.1 g/dL (31.5-36.5); Mean Corpuscular Volume 87 fL (80-100); Mean Platelet Volume 9.8 fL (9.1-12.4); NEUTROPHILS ABSOLUTE AUTO 5.06 K/mm3 (1.96-9.15); NEUTROPHILS PERCENT AUTO 66 % (41-73); NRBC ABSOLUTE 0.02 K/mm3 (0.00-0.02); NRBC Auto 0.3 /100 WBC (0.0-0.2); Platelet Count 238 K/mm3 (150-400); RDW Coefficient Variation 13.4 % (11.7-14.2); RDW Standard Deviation 42.2 fL (35.1-46.3); Red Blood Cell Count 3.61 M/mm3 (4.30-5.90); White Blood Cell Count 7.63 K/mm3 (4.00-11.30)
[2024-10-11 05:43] LABS: Bun/Creatinine Ratio 31.1 (12.0-20.0); Calcium, Blood 8.1 mg/dL (8.5-10.1); Creatinine, Blood 1.35 mg/dL (0.60-1.20); Potassium, Blood 3.7 mmol/L (3.5-5.5)
--- NOTE | 2024-10-11 06:03 | NUR ---
PT AWAKE AND WATCHING TV. NO NEEDS AT THIS TIME. CALL LT IN REACH.
[2024-10-11 06:29] VITALS: BP 104/75
[2024-10-11 07:45] VITALS: BP 100/67
[2024-10-11] MEDS ORDERED: Furosemide 10 MG / ML 2ML Vial IV ONE (13:05)
[2024-10-11] MEDS ORDERED: PredniSONE 20 MG Tab PO SCH (14:00)
[2024-10-11 15:59] VITALS: BP 103/74
--- NOTE | 2024-10-11 17:54 | NUR ---
SHIFT SUMMARY PT NOTED TO BE A&OX4 AND INDEPENDENT IN ROOM. PT TITRATED OFF O2 THIS SHIFT AND IS O2 NOTED TO BE IN MID 90'S. PT STILL NOTED TO BE SHORT OF BREATH WITH EXERTION WITH INCREASE RESPIRATIONS REQUIRING PRN BREATHING TX OFTEN TO HELP WITH DIFFICULTY. PHYSICAN NOTIFED WITH NO NEW ORDERS NOTED. PT NOTED TO CALL APPROPRIATE WHEN NEEDING ASSISTANCE.
[2024-10-11 19:31] VITALS: BP 121/75
--- NOTE | 2024-10-12 04:30 | NUR ---
SHIFT SUMMARY: PATIENT A/OX4, PLEASANT AND COOPERATIVE c CARE. PATIENT TACHY, HR 90'S TO 120'S BPM, DENIES CP/PRESSURE, N/V AND DIZZINESS. PATIENT REPORTS SOB c AMBULATION. PATIENT USES CPAP ON/OFF T/O SHIFT c 2L O2 BLEED IN, SATTING 92-96%, LUNGS STILL WHEEZY T/O TO AUSCULTATION. PATIENT WOKE UP AROUND 1300, REPORTS HE WAS HAVING "NIGHTMARE, BAD DREAMS ABOUT MY SON PASS-AWAY A YEAR AN A HALF AGO." PATIENT STAYED UP FOR TWO HOUR AND WENT BACK TO SLEEP AT AROUND 0300. PATIENT SLEPT FOR ABOUT FOUR HRS THIS SHIFT. PATIENT CONTINENT OF BLADDER, USES URINAL INDEPENDENTLY T/O SHIFT. PATIENT RECEIVED SCHEDULED MEDS PER EMAR. VITAL SIGNS REVIEWED. CALL LIGHT IN REACH.
[2024-10-12 05:11] LABS: BASOPHILS ABSOLUTE AUTO 0.01 K/mm3 (0.00-0.23); BASOPHILS PERCENT AUTO 0 % (0-2); EOSINOPHILS ABSOLUTE AUTO 0.09 K/mm3 (0.00-0.68); EOSINOPHILS PERCENT AUTO 1 % (0-6); Hematocrit 33.1 % (37.0-53.0); Hemoglobin 10.7 g/dL (13.5-17.5); IMMATURE GRAN ABSOLUTE AUTO 0.17 K/mm3 (0.00-0.10); IMMATURE GRAN PERCENT AUTO 2 % (0-1); LYMPHOCYTES ABSOLUTE AUTO 1.07 K/mm3 (0.84-5.20); LYMPHOCYTES PERCENT AUTO 15 % (21-46); MONOCYTES ABSOLUTE AUTO 0.32 K/mm3 (0.16-1.47); MONOCYTES PERCENT AUTO 5 % (4-13); Mean Corpuscular HGB 27.8 pg (26.0-34.0); Mean Corpuscular HGB Conc 32.3 g/dL (31.5-36.5); Mean Corpuscular Volume 86 fL (80-100); Mean Platelet Volume 9.7 fL (9.1-12.4); NEUTROPHILS PERCENT AUTO 76 % (41-73); Platelet Count 222 K/mm3 (150-400); RDW Coefficient Variation 13.6 % (11.7-14.2); RDW Standard Deviation 42.2 fL (35.1-46.3); Red Blood Cell Count 3.85 M/mm3 (4.30-5.90); White Blood Cell Count 6.96 K/mm3 (4.00-11.30)
[2024-10-12 05:23] VITALS: BP 115/80
[2024-10-12 06:05] LABS: Bun/Creatinine Ratio 25.4 (12.0-20.0); Calcium, Blood 8.9 mg/dL (8.5-10.1); Creatinine, Blood 1.38 mg/dL (0.60-1.20); Potassium, Blood 4.6 mmol/L (3.5-5.5)
[2024-10-12 07:44] VITALS: BP 131/96
[2024-10-12] MEDS ORDERED: Prednisone10 MG PO (14:16)
[2024-10-12] MEDS ORDERED: GUAI600T33 PO (14:16)
[2024-10-12] MEDS ORDERED: AZIT500 PO (14:17)
[2024-10-12] MEDS ORDERED: VISBIOME 112.51 EACH PO (14:17)
--- NOTE | 2024-10-12 15:44 | NUR ---
PT AWAKE AT START OF SHIFT. A&O, PLEASANT AND CO-OP. PT ON RA DURING THE DAY. 2L AT HS ON CPAP. DR SCHILLING IN TO SEE PT AND DISCUSS PLAN OF CARE. HOME O2 EVAL COMPLETE. D/C ORDERS PLACED. MEDS FAXED PER PT REQUEST TO [facility]. D/C INSTRUCTIONS REVIEWED WITH PT AND . PT ABLE TO DRESS HIMSELF. PT ASSISTED OUT TO CAR VIA W/C BY TERMITE CONTROL TECHNICIAN. TAKING ALL BELONGINGS.
== END 2024-10-12 14:56 | disposition home or self-care (01) | DRG 189 ==
LOC: ER 13:57 → MEDS 13:58 → ENPENDDIS 10-12 13:48 → MEDS 10-12 14:56
PROVIDERS: Emergency Medicine; Family Medicine; Internal Medicine; ADMIT Student in an Organized Health Care Education/Training Program
PROC: 5A09357 Assistance with Respiratory Ventilation, Less than 24 Consecutive Hours, Continuous Positive Airway Pressure (ICD-10-PCS; principal; 2024-10-06)
DX: J96.01 Acute respiratory failure with hypoxia (principal); Z94.4 Liver transplant status; E87.20 Acidosis, unspecified; J44.1 Chronic obstructive pulmonary disease with (acute) exacerbation; R65.10 Systemic inflammatory response syndrome (SIRS) of non-infectious origin without acute organ dysfunction; D69.3 Immune thrombocytopenic purpura; E11.22 Type 2 diabetes mellitus with diabetic chronic kidney disease; G47.33 Obstructive sleep apnea (adult) (pediatric); N40.0 Benign prostatic hyperplasia without lower urinary tract symptoms; E11.40 Type 2 diabetes mellitus with diabetic neuropathy, unspecified; E03.9 Hypothyroidism, unspecified; D63.1 Anemia in chronic kidney disease; N18.31 Chronic kidney disease, stage 3a; R00.0 Tachycardia, unspecified; R79.89 Other specified abnormal findings of blood chemistry; Z87.09 Personal history of other diseases of the respiratory system; Z88.5 Allergy status to narcotic agent; Z88.1 Allergy status to other antibiotic agents; Z88.8 Allergy status to other drugs, medicaments and biological substances; Z91.041 Radiographic dye allergy status; Z99.81 Dependence on supplemental oxygen; Z79.899 Other long term (current) drug therapy; Z88.0 Allergy status to penicillin; Z79.4 Long term (current) use of insulin; Z79.891 Long term (current) use of opiate analgesic; Z79.890 Hormone replacement therapy; Z98.890 Other specified postprocedural states; Z79.51 Long term (current) use of inhaled steroids; Z28.89 Immunization not carried out for other reason; Z79.621 Long term (current) use of calcineurin inhibitor
CPT/HCPCS: 0202U; 0241U; 36415; 71045; 80048; 80053; 82803; 82947; 83605; 83880; 84145; 84439; 84443; 84484; 85025; 85379; 87040; 87633; 93005; 93010; 93306; 94640; 94660; 94664; 94760; 94761; 94762; 96361; 96372; 96374; 96375; 96376; 99285-25; A9270; G0378; J0456; J1650; J1815; J1940; J2919; J7030; J7050; J7507; J7512